=== PATIENT | male | born 1965 | race African-American/Black ===

== ENCOUNTER 2019-06-13 10:16 | Observation (INO) ==
[2019-06-13] MEDS ORDERED: Nitroglycerin 0.4 MG TAB.SUBL SL ONE (11:59)
[2019-06-13] MEDS ORDERED: Aspirin 81 MG TAB.CHEW ONE (11:59)
[2019-06-13] MEDS: Aspirin 81 MG TAB.CHEW PO SCH (12:01)
[2019-06-13] MEDS ORDERED: Nitroglycerin 0.4 MG TAB.SUBL SL PRN (12:01)
[2019-06-13] MEDS ORDERED: Nitroglycerin 1 INCH/GM PACKET ONE (13:12)
[2019-06-13] MEDS ORDERED: Nitroglycerin 1 INCH/GM PACKET TP ONE (13:15)
[2019-06-13] MEDS ORDERED: *HR* OxyCODONE Immed Rel 5 MG TABLET ONE (16:29)
[2019-06-14] MEDS ORDERED: Nitroglycerin 1 INCH/GM PACKET TP ONE (00:43)
[2019-06-14] MEDS ORDERED: Ondansetron ODT 4 MG TAB.RAPDIS SL PRN (00:46)
[2019-06-14] MEDS ORDERED: Ondansetron 4 MG/2 ML VIAL IVP PRN (00:46)
[2019-06-14] MEDS ORDERED: Acetaminophen 325 MG TABLET PO PRN (00:47)
[2019-06-14] MEDS ORDERED: *HR* HYDROcodone/Acet 5/325 mg TABLET PO PRN (00:48)
[2019-06-14] MEDS ORDERED: *HR* OxyCODONE Immed Rel 5 MG TABLET PO PRN (00:49)
[2019-06-14] MEDS ORDERED: Isovue-370 500 ML BOTTLE IVP ONE (00:54)
[2019-06-14] MEDS ORDERED: amLODIPine 5 MG TABLET PO SCH ×2 (01:00→12:00)
[2019-06-14 03:23] LABS: Basophils % 0.4 %; Eosinophils # 0.5 K/mcL (0.0-0.6); Eosinophils % 6.6 %; Hematocrit 45.9 % (37.5-50.1); Hemoglobin 15.1 g/dL (12.9-16.9); Immature Granulocytes % 0.3 % (0-4); Lymphocytes # 2.5 K/mcL (0.6-4.6); Lymphocytes % 33.1 %; Mean Corpuscular HGB Conc 32.9 g/dL (31.6-35.5); Mean Corpuscular Hemoglobin 30.2 pg (28.0-33.3); Mean Corpuscular Volume 91.8 fL (83.0-100.0); Mean Platelet Volume 10.1 fL (9.4-12.4); Monocytes # 0.3 K/mcL (0.0-1.3); Monocytes % 4.4 %; Neutrophils # 4.1 K/mcL (1.6-8.9); Platelet Count 203 K/mcL (140-400); Red Cell Distribution Width 12.9 % (11.5-14.5); Segmented Neutrophils % 55.2 %; White Blood Count 7.4 K/mcL (4.3-11.1)
[2019-06-14 04:14] LABS: BUN/Creatinine Ratio 10 (6-26); Blood Urea Nitrogen 10 mg/dL (6-20); Calcium 8.9 mg/dL (8.6-10.3); Carbon Dioxide 20 mEq/L (23-29); Chloride 107 mEq/L (98-107); Glucose 101 mg/dL (70-105); Osmolality,Calculated 279 (280-300); Potassium 4.4 mEq/L (3.5-5.1); Sodium 135 mEq/L (136-145); Troponin I < 0.03 ng/mL (< 0.04); eGFR For African Americans > 60 (> 60); eGFR For Non-African Americans > 60 (> 60)
[2019-06-14] MEDS ORDERED: Trolamine Salicylate/Aloe Vera 85 APPL/85 GM TUBE TP PRN (07:55)
[2019-06-14 10:38] LABS: BUN/Creatinine Ratio 8 (6-26); Blood Urea Nitrogen 9 mg/dL (6-20); Calcium 9.2 mg/dL (8.6-10.3); Carbon Dioxide 25 mEq/L (23-29); Chloride 104 mEq/L (98-107); Chol/HDL Ratio 7.7 (0-4.9); Cholesterol 286 mg/dL (< 200); Glucose 111 mg/dL (70-105); HDL Cholesterol 37 mg/dL (40-59); LDL Cholesterol,Calculated 194 mg/dL (0-99); Osmolality,Calculated 281 (280-300); Potassium 4.1 mEq/L (3.5-5.1); Sodium 136 mEq/L (136-145); Triglycerides 273 mg/dL (< 150); Troponin I < 0.03 ng/mL (< 0.04); eGFR For African Americans > 60 (> 60); eGFR For Non-African Americans > 60 (> 60)
[2019-06-14] MEDS ORDERED: Regadenoson 0.4 MG/5 ML SYRINGE IVP ONE (11:04)
[2019-06-14 11:27] VITALS: BP 139/97
[2019-06-14] MEDS ORDERED: Aspirin 81 MG TAB.CHEW PO SCH (12:58)
[2019-06-14] MEDS: Aspirin 81 MG TAB.CHEW PO SCH (13:42)
[2019-06-14 14:20] LABS: Hematocrit 45.7 % (37.5-50.1); Hemoglobin 15.9 g/dL (12.9-16.9); Mean Corpuscular HGB Conc 34.8 g/dL (31.6-35.5); Mean Corpuscular Hemoglobin 30.5 pg (28.0-33.3); Mean Corpuscular Volume 87.7 fL (83.0-100.0); Mean Platelet Volume 10.7 fL (9.4-12.4); Platelet Count 207 K/mcL (140-400); Red Blood Count 5.21 M/mcL (4.19-5.50); Red Cell Distribution Width 12.6 % (11.5-14.5); White Blood Count 7.3 K/mcL (4.3-11.1)
[2019-06-14] MEDS ORDERED: methylPREDNISolone 125 MG/2 ML VIAL IVP ONE (15:09)
[2019-06-14] MEDS ORDERED: Ketorolac 30 MG/ML VIAL IVP ONE (15:09)
[2019-06-14 15:17] LABS: Estimated Average Glucose 146 mg/dl
[2019-06-14] MEDS ORDERED: predniSONE 20 MG TABLET PO ONE (15:38)
[2019-06-14] MEDS ORDERED: Ibuprofen 800 MG TABLET PO ONE (15:38)
== END 2019-06-14 16:09 | disposition home or self-care (01) ==
LOC: EMEROOARM 10:16 → 3BNU 10:16
PROVIDERS: ADMIT Student in an Organized Health Care Education/Training Program; ATTEND Student in an Organized Health Care Education/Training Program